=== PATIENT | male | born 1975 | race Caucasian/White ===

== ENCOUNTER 2020-03-13 07:48 | Emergency (ER) | payer BC, SELFPAY ==
--- NOTE | ~2020-03-13 | CT_ITS ---
EXAMINATION: CT abdomen pelvis wo con DATE: 03/13/2020 08:51 INDICATION: Left flank pain. TECHNIQUE: Computed tomography (CT) of the abdomen and pelvis was performed without intravenous contr ast. Automated exposure control and iterative reconstruction technique were employed. The dose-length product was 1083.29 mGy-cm. COMPARISON: None. FINDINGS: The visualized portions of the lung bases are clear without pneumonia or pleural effusion. The heart size is normal. No pericardial effusion. There is diffuse hepatic steatosis. The spleen, ga llbladder, pancreas, adrenal glands, and right kidney are normal. There is a 4.2 cm cyst in left kidn ey. There is a 4 mm stone in left kidney. The prostate is moderately enlarged. There is diverticulosi s of the colon without evidence of diverticulitis. There are no dilated loops of bowel. The appendix is not visualized. There are no pathologically enlarged lymph nodes. There is no free intraperitoneal fluid. There is moderate lower lumbar spondylosis. IMPRESSION: 1. 4 mm nonobstructing left kidney stone. Reviewed, dictated and finalized at location A.
--- NOTE | ~2020-03-13 | XR_ITS ---
XR abdomen/kub 1V 03/13/2020 10:01 Indication: Left flank pain Procedure: KUB Comparison: CT dated 03/13/2020. Findings: There is a 4 mm left renal stone. Bowel gas pattern nonobstructive. No acute osseous abnorm ality. No stones are identified in the expected course of ureters. Impression: 1: Left renal stone measuring 4 mm. Reviewed, dictated and finalized at location A. Impression: 1: Left renal stone measuring 4 mm.
[2020-03-13 07:53] VITALS: BP 173/98; PULSE 98; RESP 18; TEMP 36.6; O2SAT 100
--- NOTE | 2020-03-13 08:17 | ED.ABDPAIN ---
HPI - Abdominal Pain General Chief Complaint: Abdominal Pain Stated Complaint: Abd Pain Time Seen by Provider: 03/13/20 07:56 Source: patient Mode of arrival: ambulatory Limitations: no limitations History of Present Illness HPI narrative: 45-year-old male History of hypertension and GERD Complains of left-sided flank and lower abdominal pain for 2 or 3 weeks Pain seems to be intermittent and often relieved by having a bowel movement or passing gas, there is nothing that seems to make it worse There are no urinary symptoms, denies hematuria or dysuria No fever no vomiting, really no diarrhea Last night the pains were a little worse and lasted for about 45 minutes to an hour so he decided to get checked out although this morning he is virtually asymptomatic with 1 out of 10 discomfort MD elicited complaint: abdominal pain Pertinent past history: none Onset (ago): week(s) Pain Consistency: intermittent Location: LLQ and L flank Exacerbating factors: nothing Related Data Allergies Allergy/AdvReac Type Severity Reaction Status Date / Time No Known Allergies Allergy Verified 03/13/20 07:58 Review of Systems Review of Systems: All systems reviewed & are unremarkable except as noted in HPI and below Constitutional: Constitutional: Denies chills, Denies fatigue, Denies fever(s), Denies headache(s) and Denies night sweats Eyes: Eyes: Denies change in vision, Denies loss of vision and Denies other visual disturbances ENT: Denies headache(s), Denies hoarseness, Denies nasal congestion and Denies sore throat Cardiovascular: Cardiovascular: Denies chest pain, Denies leg edema, Denies palpitations and Denies dyspnea Respiratory: Respiratory: Denies cough, Denies dyspnea and Denies wheezing Gastrointestinal: Gastrointestinal: Reports no additional gastrointestinal complaints Genitourinary: Genitourinary: Denies hematuria, Denies dysuria and Denies urinary frequency Musculoskeletal: Musculoskeletal: Denies abnormal gait, Denies deformity, Denies joint swelling, Denies muscle weakness and Denies numbness Integumentary/Breasts: Skin/Breast: Denies rash, Denies unusual bruising and Denies wounds Neurologic: Denies abnormal gait, Denies headache(s), Denies focal weakness, Denies loss of vision and Denies numbness Psychiatric: Psychiatric: Reports no additional psychiatric complaints Endocrine: Endocrine: Denies fatigue and Denies palpitations Hematologic/Lymphatic: Hematologic/Lymphatic: Denies easy bleeding and Denies easy bruising Allergic/Immunologic: Allergic/Immunologic: Denies wheezing PMFSH Social History Social History Social History: The patient lives at home with his and 2 children and Pj Mccloud. 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 He designates his , Catrina, as his surrogate decision-maker and he wishes to be a full code. Smoking status: Never smoker Alcohol intake: never Substance use: never Substance use type: does not use Gender identity (if verbalized by the patient): Male Spiritual care concerns: No Agree to blood products: Yes Exam Const: General: healthy appearing, no acute distress and well developed Nutritional Appearance: well nourished Orientation/consciousness: patient oriented x3 (alert) and Other orientation findings (Alert) Limitations: no limitations HENMT: Head: normocephalic and atraumatic Ears: external ears normal General nose exam: No nasal discharge present Face and sinus: face symmetric Mouth: Yes tongue normal and Yes moist mucous membranes Throat: other (No exudate, no erythema) Eyes: Conjunctivae: conjunctivae normal Sclera: sclerae normal EOM: EOMs intact bilaterally Neck: Neck: normal visual inspection, full ROM and supple Thyroid: thyroid normal Chest: Chest palpation & inspection: normal inspection of the chest Resp: Effort & Inspection: normal respiratory effort and not ta
[2020-03-13 08:28] LABS: Basophils Percent Auto 0.5 % (0.2-1.2); Eosinophils Absolute Auto 0.1 K/mm3 (0-0.3); Eosinophils Percent Auto 1.2 % (0-4.4); Hematocrit 47.3 % (42.0-52.0); Hemoglobin 16.2 g/dL (14.0-18.0); Immature Granulocyte Absolute 0.02 K/mm3 (0.00-0.031); Immature Granulocyte Percent A 0.2 % (0-0.5); Lymphocytes Absolute Auto 2.03 K/mm3 (0.9-3.2); Lymphocytes Percent Auto 25.2 % (18.3-44.2); Mean Corpuscular HGB Conc 34.2 g/dl (32-36); Mean Corpuscular Hemoglobin 28.3 pg (26-34); Mean Corpuscular Volume 82.5 fl (80-100); Mean Platelet Volume 11.3 fl (7.4-10.4); Monocytes Absolute Auto 0.8 K/mm3 (0.1-0.6); Monocytes Percent Auto 10.1 % (2.6-8.5); Neutrophils Absolute Auto 5.1 K/mm3 (1.3-6.7); Neutrophils Percent Auto 62.8 % (45.5-73.1); Platelet Count Result 289 k/mm3 (150-375); Red Blood Count 5.73 M/mm3 (4.6-6.20); Red Cell Distribution Width 12.5 % (11.5-14.5); White Blood Count 8.1 K/mm3 (4.5-10.0)
[2020-03-13 08:28] LABS: Add Urine Microscopic? YES; Appearance Urine Clear (Clear); Bilirubin Urine Negative (Negative); Blood Urine Negative (Negative); Calcium Oxalate Crystals Urine Present /hpf; Color Urine Yellow (Yellow); Glucose Urine UA Negative (Negative); Ketones Urine Negative (Negative); Leukocyte Esterase Ur Negative LEU/UL (Negative); Mucus Urine Few /lpf; Nitrate Urine Negative (Negative); Protein Urine 1+ mg/dL (Negative); RBC Urine 0-2 /hpf (0-2); Specific Grav Ur 1.024 (1.001-1.035); Squamous Epithelial Cell Urine Rare /hpf (Few); Urobilinogen Urine Negative mg/dL (<2.0)
[2020-03-13 08:32] LABS: Alanine Aminotransferase 42 U/L (4-50); Alkaline Phosphatase 60 U/L (38-126); Anion Gap 9 mmol/L (8-16); Aspartate Amino Transferase 33 U/L (17-59); Bilirubin,Total 0.7 mg/dL (0.2-1.3); Blood Urea Nitrogen 10 mg/dL (9-20); Calcium 9.7 mg/dL (8.4-10.2); Carbon Dioxide 26 mmol/L (22-30); Chloride 104 mmol/L (98-107); Estimated CRCL calculation 106 ml/min; Estimated Glomerular Filt Rate > 60; Glucose 134 mg/dL (75-110); Lipase 195 U/L (23-300); Potassium 4.1 mmol/L (3.4-5.0); Sodium 139 mmol/L (137-145)
[2020-03-13 08:36] VITALS: BP 157/96; PULSE 90; RESP 17; O2SAT 99
[2020-03-13] MEDS: LACTATED RINGERS 1,000 ML 999 ML IV CONT (08:36)
[2020-03-13 10:18] VITALS: BP 152/75; PULSE 72; RESP 18; O2SAT 99
== END 2020-03-13 10:20 | disposition home or self-care (01) ==
PROVIDERS: Emergency Provider Emergency Medicine
DX: N20.0 Calculus of kidney (principal); K57.30 Diverticulosis of large intestine without perforation or abscess without bleeding
CPT/HCPCS: 36415; 74018; 74176; 80053; 81001; 83690; 85025; 96360; 99284; J7120

== ENCOUNTER 2020-05-09 09:54 | Outpatient (CLI) | payer BC, SELFPAY ==
--- NOTE | ~2020-05-09 | XR_ITS ---
EXAMINATION: XR abdomen/kub 1V EXAM DATE: 05/09/2020 10:15 INDICATION: Left-sided kidney stone pre lithotripsy. TECHNIQUE: Frontal projection of the upper abdomen, frontal projection lower abdomen/pelvis for inter pretation. Comparison is made to prior examination from 03/13/2020. FINDINGS: There is approximately 4 mm calcification projecting over the left kidney midpole unchanged . No other suspicious calcifications. Nonobstructive bowel gas pattern. There are no osseous abnormal ities identified. IMPRESSION: Left nephrolithiasis. Reviewed, dictated and finalized at location A. OR MARKETING ASSOCIATE IMPRESSION: Left nephrolithiasis.
== END 2020-05-09 09:55 | disposition home or self-care (01) ==
LOC: ANHIMG 10:01
PROVIDERS: PCP Internal Medicine; Visit Provider Urology
DX: N20.0 Calculus of kidney (principal)
CPT/HCPCS: 74018

== ENCOUNTER 2020-05-31 17:43 | Outpatient (CLI) | payer BC, SELFPAY ==
--- NOTE | ~2020-05-31 | XR_ITS ---
EXAMINATION: XR abdomen/kub 1V INDICATION: Recent lithotripsy for left nephrolithiasis TECHNIQUE: Supine views of the abdomen were obtained on 2 radiographs. COMPARISON: 05/12/2017 FINDINGS: The previously described stone of the left mid kidney is no longer identified. No stones or stone fragments are identified along the expected course of the left ureter. The visualized lung bas es are clear. A large volume of colonic stool is present. IMPRESSION: 1. Previously described left kidney stone no longer evident, consistent with history of interval lith otripsy. Reviewed, dictated and finalized at location A. 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 Previously described left kidney stone no longer evident, consistent with hi story of interval lithotripsy.
== END 2020-05-31 17:44 | disposition home or self-care (01) ==
PROVIDERS: PCP Internal Medicine; Visit Provider Urology
DX: N20.0 Calculus of kidney (principal)
CPT/HCPCS: 74018

== ENCOUNTER 2021-01-11 08:26 | Outpatient (CLI) | payer BC, SELFPAY ==
--- NOTE | ~2021-01-11 | US_ITS ---
EXAMINATION: US retroperitoneal comp DATE: 01/11/2021 08:49 INDICATION: Left renal stone TECHNIQUE: Multiple ultrasound grayscale images of the kidneys were obtained. COMPARISON: None. FINDINGS: The right kidney measures 4.5 x 5.2 x 5.3 cm. The left kidney measures 11.3 x 4.9 x 4.7 cm. The kidne ys demonstrate normal echogenicity. 4.6 cm exophytic cyst at the mid left kidney. There is no hydrone phrosis in either kidney. No stones identified. The bladder is normal. IMPRESSION: 1. 4.6 similar left renal cyst. Otherwise normal kidneys without hydronephrosis. Reviewed, dictated and finalized at location A. IMPRESSION: 1. 4.6 similar left renal cyst. Otherwise normal kidneys without hydronephrosi s.
== END 2021-01-11 08:27 | disposition home or self-care (01) ==
LOC: ANHIMG 08:30
PROVIDERS: PCP Internal Medicine; Visit Provider Urology
DX: N28.1 Cyst of kidney, acquired (principal)
CPT/HCPCS: 76770

== ENCOUNTER 2022-02-01 08:18 | Outpatient (CLI) | payer BC, SELFPAY ==
--- NOTE | ~2022-02-01 | US_ITS ---
US renal BI 02/01/2022 09:00 Procedure: Realtime transabdominal ultrasound of the kidneys and bladder. Indication: Renal stones Comparison: Ultrasound dated 01/11/2021 Findings: There are echogenic foci in the right kidney with posterior shadowing, suspicious for nonob structing renal stones. No right hydronephrosis or solid mass. Right kidney measures 11.6 cm. There i s a left renal cyst measuring 5.1 cm. No left hydronephrosis. Bladder is unremarkable. Left kidney me asures 12.2 cm. Impression: 1: Probable nonobstructing right nephrolithiasis. 2: Left renal cyst measuring 5.1 cm. Reviewed, dictated and finalized at location A. Impression: 1: Probable nonobstructing right nephrolithiasis. 2: Left renal cyst measuring 5.1 cm.
== END 2022-02-01 08:19 | disposition home or self-care (01) ==
PROVIDERS: PCP Internal Medicine; Visit Provider Urology
DX: N20.0 Calculus of kidney (principal); N28.1 Cyst of kidney, acquired
CPT/HCPCS: 76775

== ENCOUNTER 2023-12-28 14:50 | Emergency (ER) | payer BC, SELFPAY ==
[2023-12-28 15:01] VITALS: BP 139/89; PULSE 86; RESP 16; TEMP 36.9; O2SAT 100
[2023-12-28] MEDS: TETANUS,DIPHTHERIA,AC PERTUSSIS ADULT (0.5 ML) BOOSTRIX IM (15:12)
--- NOTE | 2023-12-28 15:36 | ED.GENADULT ---
HPI - General Adult General Chief complaint: Wound/Laceration Stated complaint: Cut Finger Right Hand Source: patient Mode of arrival: ambulatory Limitations: no limitations History of Present Illness HPI narrative: Patient presents for evaluation of a puncture wound to the 3rd digit of the right hand that occurred just prior to arrival. He states that he cut himself on a ant[place] razor blade at the bottom of a toolbox. No bleeding at this time. Denies any significant pain. No loss of range of motion. No fever, chills, purulence from the affected area. He states he is simply here for a tetanus shot. Date of last tetanus unknown. He is not diabetic. He is right-hand dominant. Related Data Allergies Allergy/AdvReac Type Severity Reaction Status Date / Time No Known Allergies Allergy Verified 03/13/20 07:58 Review of Systems Review of Systems: CONSTITUTIONAL: Denies fever, chills, or sweats. EYES: Denies visual changes, redness, or discharge. ENT: Denies rhinorrhea, congestion, sore throat, or otalgia. CARDIOVASCULAR: Denies chest pain, palpitations, or edema. RESPIRATORY: Denies cough or dyspnea. GASTROINTESTINAL: Denies abdominal pain, nausea, vomiting, or diarrhea. GENITOURINARY: Denies dysuria or hematuria. SKIN: Reports puncture wound to 3rd digit of right hand MUSCULOSKELETAL: Denies back pain, joint pain, or myalgia. NEUROLOGIC: Denies headache, numbness, dizziness, or weakness. PSYCHIATRIC: Denies anxiety or depression. [facility] Past Medical History Medical History Hypertension Surgical History Surgical History History of vasectomy No history of previous surgery Family History Family History Father Hypertension Mother Hypertension Sibling Hypertension Sibling Hypertension Social History Social History Social History: The patient lives at home with his and 2 children and [place]. 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 He designates his , Catrina, as his surrogate decision-maker and he wishes to be a full code. Smoking status: Never smoker Alcohol intake: never Substance use: never Substance use type: does not use Living arrangements: with family Gender identity (if verbalized by the patient): Male Spiritual care concerns: No Agree to blood products: Yes Exam Narrative: GENERAL: Well-appearing, well-nourished, and in no acute distress. HEAD: Normocephalic, atraumatic. EYES: PERRLA and EOMI. ENT: Nares clear, no rhinorrhea or epistaxis. Mucous membranes moist. Oropharynx without tonsillar hypertrophy exudate or other lesions. Bilateral TMs pearly stratton nonbulging NECK: Supple. No adenopathy or masses. No carotid bruits or JVD CHEST: Clear to auscultation. No respiratory distress. No wheezes rales or rhonchi HEART: Regular rate and rhythm. No murmur heard. Normal peripheral pulses. ABDOMEN: Soft, nontender, nondistended, normal active bowel sounds. EXTREMITIES: Normal range of motion. No edema. SKIN: There is a Band-Aid intact the 3rd digit right hand. He was removed for evaluation. I do not appreciate a significant wound to 3rd digit of right hand NEURO: No focal deficits. Alert and oriented x3. PSYCH: Normal mood and affect. Course Course Emergency Course: This is a 48-year-old male who presented for evaluation of puncture wound the 3rd digit of the right hand. I do not appreciate a significant wound on exam. He was updated on tetanus. He will monitor for signs of infection. Instructed on wound care. Follow up with primary provider. Go to the ER for worsening symptoms. Pt in agreement with plan of care. Level of Care: Express Care Visit Vital Signs Vital signs: Vital Signs Temperature 36.9 C 07
== END 2023-12-28 15:31 | disposition home or self-care (01) ==
PROVIDERS: Emergency Provider Nurse Practitioner; PCP Internal Medicine
DX: S61.232A Puncture wound without foreign body of right middle finger without damage to nail, initial encounter (principal); W26.8XXA Contact with other sharp object(s), not elsewhere classified, initial encounter; I10 Essential (primary) hypertension; Z98.52 Vasectomy status
CPT/HCPCS: 90471; 90715; 99212; G0463

== ENCOUNTER 2024-04-03 18:58 | Emergency (ER) | payer BC, SELFPAY ==
--- NOTE | ~2024-04-03 | CT_ITS ---
EXAMINATION: CT abdomen pelvis wo con DATE: 04/03/2024 19:34 INDICATION: kidney stone TECHNIQUE: Computed tomography (CT) of the abdomen and pelvis was performed without intravenous contr ast. Automated exposure control and iterative reconstruction technique were employed. The dose-length product was 468.33 mGy-cm. COMPARISON: 03/13/2020. FINDINGS: Lower thorax: Mild coronary artery calcification. Liver: Enlarged. Diffuse fatty infiltration. Biliary/Gallbladder: Gallbladder is normal. No bile duct dilation. Pancreas: No mass or duct dilation. Spleen: Normal. Adrenals:No mass. Kidneys: 5.9 cm simple left midpole cyst. Moderate left perinephric stranding. Mild left hydronephros is. Normal right kidney. GI tract: No small or large bowel dilation. Appendix not confidently visualized. No inflammatory proc ess to suggest appendicitis in the right lower quadrant. Diverticulosis without diverticulitis. Mesentery/Peritoneum: No ascites, mass, or free air. Retroperitoneum: No mass. Atherosclerotic abdominal aortic and/or arterial calcifications. Pelvis: Nearly empty urinary bladder. Prostatomegaly with calcification. 4 mm calcification in the le ft UVJ. Soft Tissues: Soft tissues and body wall unremarkable. Bones: No acute osseous finding. IMPRESSION: Hepatomegaly with steatosis. 4 mm left UVJ stone causing mild-moderate obstructive uropathy. Reviewed, dictated and finalized at location K.
[2024-04-03 18:59] VITALS: BP 170/90; PULSE 97; RESP 18; TEMP 36.3; O2SAT 97
--- NOTE | 2024-04-03 19:30 | ED_ITS ---
HPI - Abdominal Pain General Chief Complaint: Abdominal Pain Stated Complaint: left flank pain Time Seen by Provider: 04/03/24 19:16 History of Present Illness HPI narrative: 49-year-old male with a past medical history significant for multiple kidney stones requiring lithotripsy. Patient presents to the emergency department today with a chief complaint of left-sided flank pain radiating towards his left upper abdomen. States it feels very similar to his normal kidney stone pain. Last kidney stone that had to be passed several years ago required lithotripsy. Denies any hematuria but does that at the end of his micturition she has some sharp pain. Denies any groin or penile pain at rest, movement exacerbates his flank pain. Denies any fever, chills, nausea, vomiting, diarrhea, constipation. He was otherwise in his normal state of health. Related Data Allergies Allergy/AdvReac Type Severity Reaction Status Date / Time No Known Allergies Allergy Verified 04/03/24 19:02 Review of Systems Review of Systems: As reviewed above in HPI PMFSH Past Medical History Medical History (Updated 04/03/24 @ 20:38 by Bethel Rao MD) Hypertension Surgical History Surgical History History of vasectomy No history of previous surgery Family History Family History Father Hypertension Mother Hypertension Sibling Hypertension Sibling Hypertension Social History Social History Social History: The patient lives at home with his and 2 children and Pj Mccloud. 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 He designates his , Catrina, as his surrogate decision-maker and he wishes to be a full code. Smoking status: Never smoker Alcohol intake: never Substance use: never Substance use type: does not use Living arrangements: with family Gender identity (if verbalized by the patient): Male Spiritual care concerns: No Agree to blood products: Yes Exam Narrative: GENERAL: [Well-appearing, well-nourished, and in no acute distress.] HEAD: [Normocephalic, atraumatic.] EYES: [PERRLA and EOMI.] ENT: Nares clear, no rhinorrhea or epistaxis. Mucous membranes moist. NECK: Supple. CHEST: [Clear to auscultation. No respiratory distress.] HEART: [Regular rate and rhythm]. No murmur heard. [Normal peripheral pulses.] ABDOMEN: [Soft, nondistended], [ nontender abdomen], [No rigidity or guarding] right-sided CVA tenderness, radiating towards the right upper flank EXTREMITIES: Normal range of motion. [No edema.] SKIN: Warm, dry, no rash. NEURO: [No focal deficits]. Alert and oriented [x3.] PSYCH: [Normal mood and affect.] Course Vital Signs Vital signs: Vital Signs Temperature 36.3 C L 04/03/24 18:59 Pulse Rate 97 04/03/24 18:59 Respiratory Rate 18 04/03/24 18:59 Blood Pressure 170/90 H 04/03/24 18:59 Pulse Oximetry 97 04/03/24 18:59 Oxygen Delivery Room Air 04/03/24 18:59 Temperature 36.3 C L 04/03/24 18:59 Pulse Rate 97 04/03/24 18:59 Respiratory Rate 18 04/03/24 18:59 Blood Pressure 170/90 H 04/03/24 18:59 Pulse Oximetry 97 04/03/24 18:59 Oxygen Delivery Room Air 04/03/24 18:59 MDM - Abdominal Pain MDM Narrative Medical decision making narrative: 49-year-old male presenting with left-sided back pain radiating to his left flank. Has a history kidney stones and feels like this his recurrence. He had to have a lithotripsy last time for a stone that was not moving. denies any nausea, vomiting, hematuria but does note some burning pain at the end of his micturition. No fevers, chills, diarrhea, constipation. Was otherwise in his normal state of health. Has a benign abdominal examination but is tender in the left flank. differential diagnosis does include kidney stone, obstructive stone, less likely hydronephrosis or pyelonephritis. Urinary tract infection possible but the suspicion at this time. Initial laboratory studies were ordered with fluids and pain control our patient politely declined IV access. Did not want blood drawn. CT scan without contrast obtaining and he was provided oral Toradol at his request. Urinalysis will be obtained. CT scan shows a 4 mm left UVJ stone with mild obstructive uropathy. Urinalysis shows some blood but no infection. Patient had pain control after Toradol. He is stable for discharge home with urology follow-up. He will be given a script for Toradol and Flomax. Instructed to call his urologist tomorrow morning to 7 appointment. He was given return precautions including fever, intractable pain, urinary issues or any other concerning features. Patient expressed understanding was safely discharged. Medical Records Attestation: I reviewed the patient's medical records. Lab Data Labs: Lab Results 04/03/24 Range/Units 19:46 Urine Color Yellow (Yellow) Urine Appearance Clear (Clear) Urine pH 7.5 (5.0-9.0) Ur Specific [place] 1.017 (1.001-1.035) Urine Protein Negative (Negative) mg/dL Urine Glucose (UA) Negative (Negative) mg/dL Urine Ketones Negative (Negative) mg/dL Ur Blood (Man) Non-hemolyzed trace (Negative) Urine Nitrate Negative (Negative) Urine Bilirubin Negative (Negative) Urine Urobilinogen 1.0 (<2.0) mg/dL Leukocyte Esterase Rfl Negative (Negative) HUANG/UL Urine RBC 6-10 H (0-2) /hpf Urine WBC 0-5 (0-3) /hpf Ur Squamous Epith Cells None seen (Few) /hpf Urine Bacteria None seen /hpf Urine Casts 0-2 Imaging Data Attestation: I personally reviewed and interpreted this imaging study as follows: My impression: Impressions Abdomen/Pelvis CT 04/03/24 19:40 IMPRESSION: Hepatomegaly with steatosis. 4 mm left UVJ stone causing mild-moderate obstructive uropathy. Radiologist's impression: ITS Impressions Abdomen/Pelvis CT 04/03/24 19:40 IMPRESSION: Hepatomegaly with steatosis. 4 mm left UVJ stone causing mild-moderate obstructive uropathy. Discharge Plan Discharge Clinical Impression: Calculus of ureterovesical junction (UVJ) Patient Disposition: Home, Self-Care Condition: Stable Instructions: Antibiotic Form, Kidney Stones (ED), How to Strain Your Urine (ED) Additional Instructions: you do have a 4 mm left-sided kidney stone about chcf down the ureter tract. We have prescribed you medications. Follow-up with your primary care provider and urologist outpatient. Return at any point with any new concerns. Prescriptions: New ketorolac 10 mg tablet 10 mg PO Q8H PRN (Reason: pain) 5 Days Qty: 20 0RF Rx Instructions: maximum total duration of 5 days from all oral, intranasal, or parenteral formulations tamsulosin [Flomax] 0.4 mg capsule 0.4 mg PO DAILY Qty: 20 0RF No Action naproxen [Naprosyn] 500 mg tablet 500 mg PO BID Qty: 20 0RF tamsulosin [Flomax] 0.4 mg capsule 0.4 mg PO DAILY Qty: 10 0RF amlodipine [Norvasc] 5 mg Tablet 10 mg PO QAM Qty: 30 1RF pantoprazole [Protonix] 40 mg tablet,delayed release (DR/EC) 40 mg PO HS 28 Days Qty: 28 0RF Follow-up/Referrals: Sita,Buddy Guy MD [Primary Care Provider] - Time of Disposition: 20:43
[2024-04-03] MEDS: KETOROLAC 10 MG TABLET PO (19:54)
[2024-04-03 20:00] LABS: Add Urine Microscopic? NO; Appearance Urine Clear (Clear); Bacteria Urine None Seen /hpf; Bilirubin Urine Negative (Negative); Blood Urine Non-Hemolyzed Trace (Negative); Color Urine Yellow (Yellow); Glucose Urine UA Negative (Negative); Ketones Urine Negative (Negative); Leukocyte Esterase Ur Negative LEU/UL (Negative); Nitrate Urine Negative (Negative); Non Pathogenic Casts 0-2; Protein Urine Negative (Negative); Specific Grav Ur 1.017 (1.001-1.035); Squamous Epithelial Cell Urine None Seen /hpf (Few); WBC Urine 0-5 /hpf (0-3); pH Urine 7.5 (5.0-9.0)
[2024-04-03 20:59] VITALS: BP 165/95; PULSE 71; RESP 16; O2SAT 97
== END 2024-04-03 21:00 | disposition home or self-care (01) ==
PROVIDERS: Emergency Provider Student in an Organized Health Care Education/Training Program; PCP Internal Medicine
DX: N20.1 Calculus of ureter (principal); I10 Essential (primary) hypertension
CPT/HCPCS: 74176; 81003; 99284; A9270